=== PATIENT | female | born 2005 | race African-American/Black ===

== ENCOUNTER 2024-08-24 09:03 | Emergency (ER) | payer OTHER ==
[2024-08-24 09:10] VITALS: BP 110/71; PULSE 99; RESP 20; TEMP 98.4; BMI 40.3
== END 2024-08-24 13:27 | disposition home or self-care (01) ==
LOC: JERFT 09:03
PROC: 09C1XZZ Extirpation of Matter from Left External Ear, External Approach (ICD-10-PCS; principal; 2024-08-24)
DX: T16.2XXA Foreign body in left ear, initial encounter (principal)
CPT/HCPCS: 82962; 99283-25